=== PATIENT | female | born 1995 | race Caucasian/White ===

== ENCOUNTER 2023-08-07 17:35 | Emergency (ER) | payer BC, MEDICAID ==
[~2023-08-07] VITALS: Ht 162.6 cm; Wt 74.0 kg
[2023-08-07] MEDS ORDERED: PRENATAL1 TA1 PO (17:46)
[2023-08-07] MEDS ORDERED: KEFLEX500 MG PO (18:49)
[2023-08-07 18:55] VITALS: BP 128/82
== END 2023-08-07 18:56 | disposition home or self-care (01) | DRG 605 ==
LOC: ED 17:35
DX: S60.472A Other superficial bite of right middle finger, initial encounter (principal); W54.0XXA Bitten by dog, initial encounter; S60.412A Abrasion of right middle finger, initial encounter; S60.414A Abrasion of right ring finger, initial encounter